=== PATIENT | male | born 1985 | race Caucasian/White ===

== ENCOUNTER 2019-06-06 21:26 | Observation (INO) ==
[2019-06-06] MEDS ORDERED: ASPIRIN 325 MG TABLET PO STA (21:49)
[2019-06-06] MEDS ORDERED: NITROGLYCERIN SL 0.4 MG TABLET SL STA (21:49)
[2019-06-06 22:02] LABS: Basophils # 0.1 10*3/uL (0.0-0.2); Basophils % 0.5 % (0.0-0.8); Eosinophils # 0.2 10*3/uL (0.0-0.87); Eosinophils % 1.9 % (0.00-10.9); Hematocrit 41.2 VOL% (42.0-52.0); Hemoglobin 13.8 GM/DL (14.0-18.0); Immature Granulocytes % 0.3 %; Immature Granulocytes Absolute 0.03 #; Lymphocytes # 3.4 10*3/uL (1.4-4.0); Mean Corpuscular HGB Conc 33.5 GM/DL (32-36); Mean Corpuscular Volume 97.9 FL (87-102); Mean Platelet Volume 10.7 FL (9.6-12.0); Monocytes % 6.1 % (1.7-12.7); Neutrophils % 58.2 % (38.7-73.9); Platelet Count 207 T/CUMM (130-400); Red Blood Count 4.21 MC/CUMM (3.8-5.5); Red Cell Distribution Width 13.2 % (9.3-17.3); White Blood Count 10.3 T/CUMM (4-12)
[2019-06-06 22:32] LABS: Bilirubin,Total 0.4 MG/DL (0.2-1.0); Calcium 9.4 MG/DL (8.5-10.1); Osmolality,Calculated 274.7 MOS/KG (273-304); Total Protein 7.8 G/DL (6.4-8.3)
[2019-06-07] MEDS ORDERED: ZALEPLON 5 MG CAPSULE PO PRN (00:40)
[2019-06-07] MEDS ORDERED: hydrALAZINE 20 MG/1 ML VIAL IV PRN (00:40)
[2019-06-07] MEDS ORDERED: DOCUSATE SODIUM 100 MG CAPSULE PO PRN (00:40)
[2019-06-07] MEDS ORDERED: NICOTINE 21 MG/24 HR PATCH TRANSDERM PRN (00:40)
[2019-06-07] MEDS ORDERED: ONDANSETRON 4 MG/2 ML VIAL IV PRN (00:40)
[2019-06-07] MEDS ORDERED: ACETAMINOPHEN 325 MG TABLET PO PRN (00:40)
[2019-06-07] MEDS ORDERED: NITROGLYCERIN SL 0.4 MG TABLET SL PRN (00:40)
[2019-06-07] MEDS ORDERED: MORPHINE 4 MG/1 ML VIAL IV PRN (00:40)
[2019-06-07 04:50] LABS: Basophils # 0.1 10*3/uL (0.0-0.2); Basophils % 0.6 % (0.0-0.8); Eosinophils # 0.3 10*3/uL (0.0-0.87); Eosinophils % 2.7 % (0.00-10.9); Hematocrit 39.4 VOL% (42.0-52.0); Hemoglobin 13.1 GM/DL (14.0-18.0); Immature Granulocytes % 0.2 %; Immature Granulocytes Absolute 0.02 #; Lymphocytes # 4.1 10*3/uL (1.4-4.0); Mean Corpuscular HGB Conc 33.2 GM/DL (32-36); Mean Corpuscular Volume 98.7 FL (87-102); Monocytes % 7.5 % (1.7-12.7); Platelet Count 196 T/CUMM (130-400); Red Blood Count 3.99 MC/CUMM (3.8-5.5); Red Cell Distribution Width 13.2 % (9.3-17.3); White Blood Count 10.4 T/CUMM (4-12)
[2019-06-07 05:33] LABS: Calcium 8.9 MG/DL (8.5-10.1); Osmolality,Calculated 278.4 MOS/KG (273-304); Risk Ratio 3.87; Thyroid Stimulating Hormone 3.29 uIU/ml (0.358-3.74); VLDL CHOLESTEROL 55.2 MG/DL
[2019-06-07] MEDS ORDERED: ENOXAPARIN 40 MG/0.4 ML SYRINGE SUBCUT SCH (08:00)
[2019-06-07] MEDS ORDERED: metFORMIN 500 MG TABLET PO SCH (08:00)
[2019-06-07] MEDS ORDERED: FENOFIBRATE 160 MG TABLET PO SCH (09:00)
[2019-06-07] MEDS ORDERED: ASPIRIN EC 81 MG TABLET PO SCH (09:00)
[2019-06-07 11:37] VITALS: BP 162/93
[2019-06-08] MEDS ORDERED: amLODIPine 5 MG TABLET PO SCH (09:00)
== END 2019-06-07 14:44 | disposition home or self-care (01) ==
LOC: N.ED 21:26 → N.EDINP 21:26 → N.2E 23:53
PROVIDERS: ADMIT Internal Medicine; ATTEND Internal Medicine